=== PATIENT | female | born 1940 ===

== ENCOUNTER 2018-03-22 11:52 | Inpatient (IN) | payer MEDICAID, OTHER ==
--- NOTE | 2018-03-22 13:06 | ED PDOC ---
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 Limitations: language barrier Have you had recent travel within the past 21 days to any of the following countries: [place], [place], [place] or [place]?: No Onset/Duration Of Symptoms: Days (three) Current Symptoms Are (Timing): Still Present Location Of Pain: Throat Sick Contacts (Context): None Associated Symptoms: Fever, Sore Throat, Cough Severity: Moderate Additional Complaint(s): Pt presents to the ED complaining of shortness of breath, SCHMITT and general ill feeling for the last several days; the patient, on presentation is on93% Pulse Ox; pt has had a recent history of knee surgery Past Medical History Reviewed: Historical Data, Nursing Documentation, Vital Signs Vital Signs: Last Vital Signs Temp 97.8 F 03/27/18 12:25 Pulse 89 03/27/18 12:25 Resp 18 03/27/18 12:25 BP 135/70 03/27/18 12:25 Pulse Ox 95 03/28/18 21:20 - Medical History PMH: COPD, HTN, Hyperlipidemia - Family History Family History: States: Unknown Family Hx - Home Medications Home Medications: Ambulatory Orders Medication Instructions Recorded Albuterol/Ipratropium [Duoneb 3 3 ml IH Q4 PRN #100 neb 03/27/18 MG/3 Ml-0.5 MG/3 Ml 3 Ml] Azithromycin [Zithromax] 500 mg PO DAILY #5 tab 03/27/18 Docusate [Colace] 100 mg PO BID PRN #60 cap 03/27/18 Montelukast [Singulair] 10 mg PO DAILY #30 tab 03/27/18 Prednisone 5 mg PO DAILY #100 tab.ds.pk 03/27/18 - Allergies Allergies/Adverse Reactions: Allergies Allergy/AdvReac Type Severity Reaction Status Date / Time No Known Allergies Allergy Verified 03/22/18 12:09 Curb-65 Severity Score - CURB-65 Severity Score Confusion: No Bun >19mg/dl (>7mmol/L): Yes Respiratory Rate greater than/equal to 30: No Systolic BP <90 or Diastolic BP less than/equal 60mmHg: No Age >64: Yes Curb-65 Score: 2 Percentage 30-day mortality: 6.8% Review of Systems ROS Statement: Except As Marked, All Systems Reviewed And Found Negative Constitutional: Positive for: Fever, Chills Cardiovascular: Positive for: Chest Pain. Negative for: Palpitations, Edema, Light Headedness Respiratory: Positive for: Cough, Shortness of Breath, SOB with Exertion, Pleuritic Pain, Wheezing Gastrointestinal: Negative for: Nausea, Vomiting, Abdominal Pain Physical Exam - Reviewed Nursing Documentation Reviewed: Yes Vital Signs Reviewed: Yes - Physical Exam Appears: Positive for: Uncomfortable, In Acute Distress Head Exam: Positive for: ATRAUMATIC, NORMAL INSPECTION, NORMOCEPHALIC Skin: Positive for: Normal Color, Warm, Dry ENT: Positive for: Pharynx Is (clear and non-erythematous; there is no tonsillar exudate and the uvula is nonedematous and midline), Pharyngeal Erythema. Negative for: Tonsillar Exudate, Tonsillar Swelling Neck: Positive for: Normal, Painless ROM, Supple. Negative for: Decreased ROM Cardiovascular/Chest: Positive for: Regular Rate, Rhythm. Negative for: Edema, Gallop, Murmur, Bradycardia, Tachycardia Respiratory: Positive for: Decreased Breath Sounds, Stridor, Wheezing. Negative for: Crackles, Respiratory Distress, Plerual Rub Pulses-Carotid (L): 2+ Pulses-Carotid (R): 2+ Pulses-Radial (L): 2+ Pulses-Radial (R): 2+ - Laboratory Results Result Diagrams: 03/27/18 06:05 03/27/18 06:05 - ECG O2 Sat by Pulse Oximetry: 95 Disposition - Clinical Impression Clinical Impression: Heart failure - Patient ED Disposition Is Patient to be Admitted: Yes Doctor Will See Patient In The: Hospital Counseled Patient/Family Regarding: Diagnosis - Disposition Disposition Time: 14:10 Condition: IMPROVED - Pt Status Changed To: Hospital Disposition Of: Inpatient - Admit Certification Admit to Inpatient:: After my assessment, the patient will require hospitalization for at least two midnights. This is because of the severity of symptoms shown, intensity of services needed, and/or the medical risk in this patient being treated as an outpatient.
[2018-03-22] MEDS ORDERED: Piperacillin/Tazobact 4.5 GM in Sodium Chloride 0.9% 100 ML IVPB ONE (13:15)
[2018-03-22] MEDS ORDERED: Vancomycin 1 g Inj ONE (13:32)
[2018-03-22 13:35] LABS: VENOUS BLOOD GAS BASE EXCESS 3.3 mmol/L (0.0-2.0); VENOUS BLOOD GAS PCO2 48 mmHg (40-60); VENOUS BLOOD GAS PO2 21 mm/Hg (30-55); VENOUS BLOOD PH 7.39 (7.32-7.43)
--- NOTE | 2018-03-22 13:36 | RAD ---
HISTORY: Sepsis Patient COMPARISON: No prior. FINDINGS: LUNGS: Suboptimal portable study. Heterogeneous small opacities at the left lower lobe noted may represent atelectasis versus pneumonia. The right lung appears smaller than the left. PLEURA: No significant pleural effusion identified, no pneumothorax apparent. CARDIOVASCULAR: The cardiac silhouette is enlarged. There is also widening of the mediastinum noted. OSSEOUS STRUCTURES: No significant abnormalities. VISUALIZED UPPER ABDOMEN: Normal. OTHER FINDINGS: None. IMPRESSION: Suboptimal portable study. Small opacities at the left lower lobe may represent atelectasis or pneumonia. Widening of the mediastinum and mild cardiomegaly noted .
[2018-03-22 13:37] LABS: BASO % 0.3 % (0.0-2.0); EOS % 0.1 % (0.0-4.0); HEMOGLOBIN 14.5 g/dL (12.0-16.0); LYMPH # 1.1 K/uL (1.0-4.3); LYMPH % 12.5 % (20.0-40.0); MEAN CELL VOLUME 92.2 fl (81.0-99.0); MEAN CORPUSCULAR HGB CONC 34.7 g/dL (33.0-37.0); MEAN PLATELET VOLUME 9.1 fl (7.2-11.7); MONO # 0.8 K/uL (0.0-0.8); MONO % 9.2 % (0.0-10.0); NEUT % 77.9 % (50.0-75.0); NRBC % 0.1 % (0.0-0.0); RBC 4.51 Mil/uL (3.80-5.20); RED CELL DISTRIBUTION WIDTH 13.6 % (11.5-14.5)
[2018-03-22] MEDS ORDERED: Sodium Chloride 0.9% 1,000 ML IV SCH (13:45)
[2018-03-22 13:55] LABS: INR 1.2 (0.9-1.2); PARTIAL THROMBOPLASTIN TIME 29.6 Seconds (25.6-37.1); PROTHROMBIN TIME 13.6 Seconds (9.8-13.1)
[2018-03-22 13:57] LABS: ALBUMIN 3.7 g/dL (3.5-5.0); CALCIUM 10.5 mg/dL (8.4-10.2)
[2018-03-22 13:58] LABS: TROPONIN I 0.071 ng/mL (0.00-0.120)
[2018-03-22 14:39] LABS: SQUAMOUS EPITHIAL 4 /hpf (0-5); URINE BACTERIA RARE (<OCC); URINE BILIRUBIN NEGATIVE (NEGATIVE); URINE BLOOD NEGATIVE (NEGATIVE); URINE CLARITY CLOUDY (Clear); URINE COLOR YELLOW (YELLOW); URINE GLUCOSE (UA) NEG (Normal); URINE LEUKOCYTE ESTERASE NEG Leu/uL (Negative); URINE PROTEIN NEGATIVE (NEGATIVE)
[2018-03-22 14:47] LABS: VENOUS BLOOD GAS BASE EXCESS 3.6 mmol/L (0.0-2.0); VENOUS BLOOD GAS PCO2 52 mmHg (40-60); VENOUS BLOOD GAS PO2 14 mm/Hg (30-55); VENOUS BLOOD PH 7.37 (7.32-7.43)
[2018-03-22] MEDS ORDERED: Sodium Chloride 3% for Inhalation 4 ML VIAL.NEB IH PRN (15:54)
--- NOTE | 2018-03-22 16:28 | CP.PCM.HP ---
History of Present Illness - History of Present Illness History of Present Illness: 78 yo female with history of HTN and CAD just arrived a month ago as a visitor from [place] brought in the ER because of coughing productive with yellow sputum associated with fever since 3 days ago. Also complained of left sided chest pain when coughing or taking a deep breath and some SOB. Denied nausea or vomiting. Chest pain was non-radiating and pleuritic in character. There was no complaint of numbness of the limbs or dizziness. Present on Admission - Present on Admission Any Indicators Present on Admission: No History of DVT/PE: No History of Uncontrolled Diabetes: No Urinary Catheter: No Decubitus Ulcer Present: No Review of Systems - Review of Systems All systems: reviewed and no additional remarkable complaints except (aside from those mentioned above, 12 point system review were negative by me) Past Patient History - Infectious Disease Hx of Infectious Diseases: None - Tetanus Immunizations Tetanus Immunization: Unknown - Past Medical History & Family History Past Medical History?: Yes - Past Social History Smoking Status: Never Smoked Chewing Tobacco Use: No Cigar Use: No Alcohol: None Drugs: Denies Home Situation {Lives}: Other (visitor from [place]) - CARDIAC Hx Cardiac Disorders: Yes Hx Hypertension: Yes - PULMONARY Hx Respiratory Disorders: No - NEUROLOGICAL Hx Neurological Disorder: No - HEENT Hx HEENT Problems: No - RENAL Hx Chronic Kidney Disease: No - ENDOCRINE/METABOLIC Hx Endocrine Disorders: No - HEMATOLOGICAL/ONCOLOGICAL Hx Blood Disorders: No - INTEGUMENTARY Hx Dermatological Problems: No - MUSCULOSKELETAL/RHEUMATOLOGICAL Hx Musculoskeletal Disorders: No - GASTROINTESTINAL Hx Gastrointestinal Disorders: No - GENITOURINARY/GYNECOLOGICAL Hx Genitourinary Disorders: No - PSYCHIATRIC Hx Psychophysiologic Disorder: No Hx Substance Use: No - SURGICAL HISTORY Hx Tubal Ligation: Yes - ANESTHESIA Hx Anesthesia: Yes Hx Anesthesia Reactions: No Meds Allergies/Adverse Reactions: Allergies Allergy/AdvReac Type Severity Reaction Status Date / Time No Known Allergies Allergy Verified 03/22/18 12:09 Physical Exam - Constitutional Appears: No Acute Distress - Head Exam Head Exam: ATRAUMATIC - Eye Exam Eye Exam: PERRL. absent: Scleral icterus - ENT Exam ENT Exam: Mucous Membranes Moist - Neck Exam Neck exam: Negative for: Meningismus - Respiratory Exam Respiratory Exam: Wheezes. absent: Accessory Muscle Use, Respiratory Distress - Cardiovascular Exam Cardiovascular Exam: REGULAR RHYTHM, +S1, +S2 - GI/Abdominal Exam GI & Abdominal Exam: Soft. absent: Tenderness - Rectal Exam Rectal Exam: Deferred - Extremities Exam Extremities exam: Positive for: pedal pulses present. Negative for: calf tenderness, pedal edema - Back Exam Back exam: absent: tenderness - Neurological Exam Neurological exam: Alert, Oriented x3 - Psychiatric Exam Psychiatric exam: Normal Affect - Skin Skin Exam: Dry, Intact Results - Vital Signs Recent Vital Signs: Last Vital Signs Temp 99.1 F 03/22/18 15:22 Pulse 98 H 03/22/18 16:13 Resp 22 03/22/18 16:13 BP 120/58 L 03/22/18 16:13 Pulse Ox 99 03/22/18 16:13 - Labs Result Diagrams: 03/22/18 13:29 03/22/18 13:29 Labs: Laboratory Results - last 24 hr 03/22/18 03/22/18 03/22/18 13:29 13:29 13:29 WBC 9.0 RBC 4.51 Hgb 14.5 Hct 41.6 MCV 92.2 MCH 32.0 H MCHC 34.7 RDW 13.6 Plt Count 190 MPV 9.1 Neut % (Auto) 77.9 H Lymph % (Auto) 12.5 L [place] % (Auto) 9.2 Eos % (Auto) 0.1 Baso % (Auto) 0.3 Neut # (Auto) 7.0 Lymph # (Auto) 1.1 [place] # (Auto) 0.8 Eos # (Auto) 0.0 Baso # (Auto) 0.0 ESR 39 H PT 13.6 H INR 1.2 APTT 29.6 pO2 VBG pH VBG pCO2 VBG HCO3 VBG Total CO2 VBG O2 Sat (Calc) VBG Base Excess VBG Potassium Sodium 134 Chloride 97 L Glucose Lactate FiO2 Potassium 3.6 Carbon Dioxide 23 Anion Gap 18 BUN 31 H Creatinine 1.3 H Est GFR ( Amer) 48 Est GFR (Non-Af Amer) 39 Random Glucose 171 H Lactic Acid Calcium 10.5 H Phosphorus 2.2 L Magnesium 1.1 L Total Bilirubin 1.5 H AST 41 H ALT 31 Alkaline Phosphatase 62 Troponin I 0.0710 NT-Pro-B Natriuret Pep 6240 H Total Protein 7.4 Albumin 3.7 Globulin 3.7 Albumin/Globulin Ratio 1.0 Venous Blood Potassium Urine Color Urine Clarity Urine pH Ur Specific [place] Urine Protein Urine Glucose (UA) Urine Ketones Urine Blood Urine Nitrate Urine Bilirubin Urine Urobilinogen Ur Leukocyte Esterase Urine RBC (Auto) Urine Microscopic WBC Ur Squamous Epith Cells Urine Bacteria 03/22/18 03/22/18 03/22/18 13:29 13:29 14:20 WBC RBC Hgb Hct MCV MCH MCHC RDW Plt Count MPV Neut % (Auto) Lymph % (Auto) [place] % (Auto) Eos % (Auto) Baso % (Auto) Neut # (Auto) Lymph # (Auto) [place] # (Auto) Eos # (Auto) Baso # (Auto) ESR PT INR APTT pO2 21 L VBG pH 7.39 VBG pCO2 48 VBG HCO3 25.8 VBG Total CO2 30.6 H VBG O2 Sat (Calc) 44.6 VBG Base Excess 3.3 H VBG Potassium 3.6 Sodium 133.0 Chloride 98.0 Glucose 124 H Lactate 1.7 FiO2 21.0 Potassium Carbon Dioxide Anion Gap BUN Creatinine Est GFR ( Amer) Est GFR (Non-Af Amer) Random Glucose Lactic Acid 1.5 Calcium Phosphorus Magnesium Total Bilirubin AST ALT Alkaline Phosphatase Troponin I NT-Pro-B Natriuret Pep Total Protein Albumin Globulin Albumin/Globulin Ratio Venous Blood Potassium 3.6 Urine Color Yellow Urine Clarity Cloudy Urine pH 6.0 Ur Specific [place] 1.013 Urine Protein Negative Urine Glucose (UA) Neg Urine Ketones Negative Urine Blood Negative Urine Nitrate Negative Urine Bilirubin Negative Urine Urobilinogen 2.0 H Ur Leukocyte Esterase Neg Urine RBC (Auto) < 1 Urine Microscopic WBC 1 Ur Squamous Epith Cells 4 Urine Bacteria Rare 03/22/18 14:42 WBC RBC Hgb Hct MCV MCH MCHC RDW Plt Count MPV Neut % (Auto) Lymph % (Auto) [place] % (Auto) Eos % (Auto) Baso % (Auto) Neut # (Auto) Lymph # (Auto) [place] # (Auto) Eos # (Auto) Baso # (Auto) ESR PT INR APTT pO2 14 L VBG pH 7.37 VBG pCO2 52 VBG HCO3 25.5 VBG Total CO2 31.7 H VBG O2 Sat (Calc) 25.4 L VBG Base Excess 3.6 H VBG Potassium 3.9 Sodium 134.0 Chloride 99.0 Glucose 102 Lactate 1.3 FiO2 21.0 Potassium Carbon Dioxide Anion Gap BUN Creatinine Est GFR ( Amer) Est GFR (Non-Af Amer) Random Glucose Lactic Acid Calcium Phosphorus Magnesium Total Bilirubin AST ALT Alkaline Phosphatase Troponin I NT-Pro-B Natriuret Pep Total Protein Albumin Globulin Albumin/Globulin Ratio Venous Blood Potassium 3.9 Urine Color Urine Clarity Urine pH Ur Specific [place] Urine Protein Urine Glucose (UA) Urine Ketones Urine Blood Urine Nitrate Urine Bilirubin Urine Urobilinogen Ur Leukocyte Esterase Urine RBC (Auto) Urine Microscopic WBC Ur Squamous Epith Cells Urine Bacteria Assessment & Plan - Assessment and Plan (Free Text) Assessment: 78 yo female with history of HTN and CAD just arrived a month ago as a visitor from [place] brought in the ER because of coughing productive with yellow sputum associated with fever since 3 days ago. Also complained of left sided chest pain when coughing or taking a deep breath and some SOB. Denied nausea or vomiting. Chest pain was non-radiating and pleuritic in character. There was no complaint of numbness of the limbs or dizziness. 1. LLL Pneumonia CXray: showed LLL opacity with widened mediastinum and cardiomegaly CT scan of chest blood and sputum culture Rocephin 1gm IVPB daily Zithromax 500mg IVPB daily 2. CHF Isosorbide, Diovan and HCTZ taken this morning Serial Troponin 3. HTN BP stable after loaded with fluids patient took morning dose of Diovan/HCTZ and Isosorbide 4. DVT prophylaxis Heparin 5000 SC q 12hrs
[2018-03-22] MEDS ORDERED: Albuterol-Ipratrop 3 mg / 0.5 (3 ml) UD INH PRN (16:34)
[2018-03-22] MEDS: Sodium Chloride 0.9% 1,000 ML IV SCH ×5 (16:56→18:38)
[2018-03-22] MEDS ORDERED: Pantoprazole 40 mg EC Tab PO ONE (17:00)
[2018-03-22] MEDS: Pantoprazole 40 mg EC Tab PO SCH (17:01)
[2018-03-22] MEDS ORDERED: cefTRIAXone (Rocephin) 1 gm Inj ONE (17:01)
--- NOTE | 2018-03-22 17:02 | CT ---
PROCEDURE: CT Chest and abdomen with intravenous and oral contrast HISTORY: r/o dissection COMPARISON: None. TECHNIQUE: IV dose administered: 0. Axial and reformatted coronal and sagittal CT images of the chest and abdomen were obtained without IV contrast administration Radiation dose: Total exam DLP = 945.18 mGy-cm. This CT exam was performed using one or more of the following dose reduction techniques: Automated exposure control, adjustment of the mA and/or kV according to patient size, and/or use of iterative reconstruction technique. FINDINGS: CT CHEST: LUNGS: Mild pulmonary vascular congestion is noted. There are reticular opacities seen in the lungs more prominent in the mid and lower portion may represent atelectasis or scar tissue. No evidence of suspicious mass. MEDIASTINUM: The thoracic aorta is ectatic and tortuous. The main pulmonary artery is mildly enlarged. No evidence of calcified intimal displacement to suggest aortic dissection in this noncontrast study. .The heart is mildly to moderately enlarged. LYMPH NODES: Unremarkable. PLEURA: Unremarkable. No pneumothorax. No pleural fluid. BONES: Unremarkable. OTHER FINDINGS:: None. CT ABDOMEN: LIVER: No evidence of acute pathology. No gross lesion or ductal dilatation. GALLBLADDER AND BILE DUCTS: Unremarkable. PANCREAS: Unremarkable. No gross lesion or ductal dilatation. SPLEEN: Unremarkable. ADRENALS: There is 3.4 x 2.6 centimeter low-attenuation mass at the left adrenal gland may represent benign adenoma. KIDNEYS AND URETERS: Unremarkable. No hydronephrosis. No solid mass. VASCULATURE: Unremarkable. No aortic aneurysm. STOMACH AND BOWEL: Unremarkable, as visualized. The entire bowel was not visualized, as the pelvis was not included in this study. PERITONEUM: Unremarkable. No free fluid. No free air. LYMPH NODES: Unremarkable. No enlarged lymph nodes. BONES: No acute fracture. OTHER FINDINGS: None. IMPRESSION: Cannot evaluate for aortic dissection without IV contrast administration. The thoracic aorta is ectatic and tortuous. The abdominal aorta is normal in caliber and shape. Mild pulmonary vascular congestion and [id number] cardiomegaly. No evidence of acute pathology in the abdomen. 3.4 x 2.6 centimeter low-attenuation mass at the left adrenal gland may represent benign adenoma.
[2018-03-22] MEDS ORDERED: Azithromycin 500 MG IV IVPB ONE (18:18)
[2018-03-22] MEDS: Azithromycin 500 MG in Sodium Chloride 0.9% 250 ML IVPB SCH (18:18)
[2018-03-22] MEDS ORDERED: Albuterol-Ipratrop 3 mg / 0.5 (3 ml) UD ONE (20:06)
[2018-03-23] MEDS: Sodium Chloride 0.9% 1,000 ML IV SCH (04:20)
[2018-03-23 05:20] LABS: BASO % 0.6 % (0.0-2.0); EOS % 0.6 % (0.0-4.0); LYMPH # 1.9 K/uL (1.0-4.3); LYMPH % 27.1 % (20.0-40.0); MEAN CORPUSCULAR HEMOGLOBIN 32.1 pg (27.0-31.0); MEAN CORPUSCULAR HGB CONC 33.9 g/dL (33.0-37.0); MEAN PLATELET VOLUME 8.8 fl (7.2-11.7); MONO # 0.8 K/uL (0.0-0.8); MONO % 11.5 % (0.0-10.0); NEUT # 4.3 K/uL (1.8-7.0); NEUT % 60.2 % (50.0-75.0); RBC 3.9 Mil/uL (3.80-5.20); RED CELL DISTRIBUTION WIDTH 13.7 % (11.5-14.5); WHITE BLOOD COUNT 7.2 K/uL (4.8-10.8)
[2018-03-23 05:39] LABS: LDL CHOLESTEROL 44 mg/dL (0-129)
[2018-03-23 05:43] LABS: HEMOGLOBIN 12.5 g/dL (12.0-16.0); MEAN CELL VOLUME 94.5 fl (81.0-99.0)
[2018-03-23 06:00] LABS: ALB/GLOB RATIO 0.8 (1.0-2.1); ALBUMIN 2.9 g/dL (3.5-5.0); ALT/SGPT 26 U/L (9-52); AST/SGOT 37 U/L (14-36); BLOOD UREA NITROGEN 22 mg/dl (7-17); CALCIUM 9.5 mg/dL (8.4-10.2); GFR AFRICAN-AMERICAN > 60; GFR NON-AFRICAN AMERICAN 53; HDL CHOLESTEROL 38 MG/DL (30-70)
[2018-03-23] MEDS ORDERED: Iohexol 240 (50 ml) PO STA (07:57)
--- NOTE | 2018-03-23 07:59 | CP.PCM.PN ---
Subjective - Date & Time of Evaluation Date of Evaluation: 03/23/18 Time of Evaluation: 07:59 - Subjective Subjective: PT WHEEZING THROUGHOUT, AUDIBLE AT REST PT FATIGUES EASILY WITH SPEECH, FEW WORDS AT A TIME ACCESSORY MUSCLE USE SATURATING 95% ON 3L MONITOR CLOSELY Objective - Vital Signs/Intake and Output Vital Signs (last 24 hours): Temp Pulse Resp BP Pulse Ox 98.3 F 90 18 108/69 97 03/23/18 05:02 03/23/18 05:02 03/23/18 05:02 03/23/18 05:02 03/23/18 05:02 Vitals Reviewed GEN: WDWN, alert, cooperative HEENT: NCAT, PERRL, EOMI HEART: RRR, +S1S2, NO MRG LUNG: +WHEEZING THROUGHOUT, AUDIBLE WITHOUT AUSCULTATION, ACCESSORY MUSCLE USE , FATIGUE WITH SPEECH ABD: soft, NT, ND, No HSM, No masses EXT: normal pedal pulses, normal capillary refill NEURO: awake, alert, no focal deficits SKIN: warm, dry PSYCH: normal mood, normal affect Intake and Output: 03/23/18 03/23/18 06:59 18:59 Intake Total 1250 Balance 1250 - Medications Medications: Current Medications Albuterol/Ipratropium (Duoneb 3 Mg/0.5 Mg (3 Ml) Ud) 3 ml INH RQ4 PRN PRN Reason: Wheezing Last Admin: 03/22/18 20:11 Dose: 3 ml Docusate Sodium (Colace) 100 mg PO BID PRN PRN Reason: Constipation Ceftriaxone Sodium 1 gm/ (Sodium Chloride) 100 mls @ 100 mls/hr IVPB DAILY ALHAJI PRN Reason: Protocol Last Admin: 03/22/18 17:01 Dose: 100 mls/hr Azithromycin 500 mg/ Sodium (Chloride) 250 mls @ 250 mls/hr IVPB DAILY ALHAJI PRN Reason: Protocol Last Admin: 03/22/18 18:18 Dose: 250 mls/hr Sodium Chloride (Sodium Chloride 0.9%) 1,000 mls @ 100 mls/hr IV .Q10H ALHAJI Stop: 03/23/18 15:33 Last Admin: 03/23/18 04:20 Dose: 100 mls/hr Iohexol (Omnipaque 240 (50 Ml)) 50 ml PO ONCE STA Stop: 03/23/18 07:58 Pantoprazole Sodium (Protonix Ec Tab) 40 mg PO DAILY ALHAJI Last Admin: 03/22/18 17:01 Dose: 40 mg Pneumococcal Polyvalent Vaccine (Pneumovax 23 Vaccine) 0.5 ml IM .ONCE ONE Stop: 03/23/18 09:01 - Labs Labs: 03/23/18 04:20 03/23/18 04:20 PT 13.6 Seconds (9.8-13.1) H 03/22/18 13:29 INR 1.2 (0.9-1.2) 03/22/18 13:29 APTT 29.6 Seconds (25.6-37.1) 03/22/18 13:29 Assessment and Plan - Assessment and Plan (Free Text) Plan: 78 yo female with history of HTN and CAD just arrived a month ago as a visitor from [place] brought in the ER because of coughing productive with yellow sputum associated with fever since 3 days ago. Also complained of left sided chest pain when coughing or taking a deep breath and some SOB. Denied nausea or vomiting. Chest pain was non-radiating and pleuritic in character. There was no complaint of numbness of the limbs or dizziness. 1. LLL Pneumonia CXray: showed LLL opacity with widened mediastinum and cardiomegaly CT scan of chest dry, prelim neg for dissection renal function improved, dimer elevated, pt for CTA chest and abd for diagnostic eval for dissection/PE blood and sputum culture pending procalcitonin pending continue aggressive duoneb tx, pt improved after several tx Rocephin 1gm IVPB daily Zithromax 500mg IVPB daily 2. CHF Isosorbide, Diovan and HCTZ taken this morning Serial Troponin neg x3 3. HTN BP stable after loaded with fluids patient took morning dose of Diovan/HCTZ and Isosorbide 4. DVT prophylaxis Heparin 5000 SC q 12hrs
[2018-03-23] MEDS ORDERED: Pneumococcal 23-Valent Vaccine IM ONE (09:00)
[2018-03-23] MEDS: Azithromycin 500 MG in Sodium Chloride 0.9% 250 ML IVPB SCH (09:29)
[2018-03-23] MEDS: Pantoprazole 40 mg EC Tab PO SCH (09:30)
[2018-03-23] MEDS ORDERED: Perflutren Lipid Microsphere 1.5 ML SUS IV ONE (11:30)
[2018-03-23] MEDS: Artificial Tears Opht Soln OU PRN (12:10)
[2018-03-23] MEDS: Iohexol 240 (50 ml) PO STA ×2 (13:10→13:26)
[2018-03-23] MEDS: Albuterol-Ipratrop 3 mg / 0.5 (3 ml) UD INH SCH ×4 (13:17→23:20)
--- NOTE | 2018-03-23 14:20 | CARD ---
APPROVED REPORT EKG Measurement Heart [id number] <Conclusion> Sinus tachycardia with 1st degree AV block Left axis deviation Left bundle branch block Abnormal ECG
[2018-03-23] MEDS ORDERED: Sodium Chloride 0.9% 50 ML IV ONE (14:31)
[2018-03-23] MEDS ORDERED: Iodixanol 320 MG/ML 100 ML BOTTLE IV ONE (14:31)
--- NOTE | 2018-03-23 19:10 | CARD ---
APPROVED REPORT EXAM: Two-dimensional and M-mode echocardiogram with Doppler, color Doppler with contrast. Other Information Quality : GoodRhythm : NSR INDICATION Cardiomyopathy Elevated BNP Echo Enhancing Agent Indication: Rule out thrombus Agent/Amount Used: Definity 2D DIMENSIONS IVSd1.39 (0.7-1.1cm)LVDd4.42 (3.9-5.9cm) LVOT Diameter2.44 (1.8-2.4cm)PWd1.10 (0.7-1.1cm) IVSs0.89 (0.8-1.2cm)LVDs5.17 (2.5-4.0cm) FS (%) 17.0 %PWs1.10 (0.8-1.2cm) M-Mode DIMENSIONS Left Atrium (MM)4.26 (2.5-4.0cm)Aortic Root3.63 (2.2-3.7cm) Mitral Valve E/A ratio0.0 TDI E/Lateral E'0.0E/Medial E'0.0 Tricuspid Valve TR Peak [id number] [id number] Peak Gr.23mmHg [id number] LEFT VENTRICLE The left ventricle is normal size. There is normal left ventricular wall thickness. Left ventricle is severely impaired. The Ejection Fraction is 20-25%. Apical and vj-septal hypokinesis Transmitral Doppler flow pattern is Grade I-abnormal relaxation pattern. A thrombus in left Ventricle. RIGHT VENTRICLE The right ventricle is normal size. There is normal right ventricular wall thickness. The right ventricular systolic function is normal. ATRIA The left atrium size is normal. The right atrium size is normal. AORTIC VALVE The aortic valve is not well visualized. There is mild aortic regurgitation. There is no aortic valvular stenosis. MITRAL VALVE The mitral valve is not well visualized. There is no mitral valve stenosis. Mitral regurgitation is trace. TRICUSPID VALVE The tricuspid valve is normal in structure. There is mild pulmonary hypertension. PULMONIC VALVE The pulmonary valve is normal in structure. There is no pulmonic valvular regurgitation. GREAT VESSELS The aortic root is normal in size. The IVC is normal in size and collapses >50% with inspiration. PERICARDIAL EFFUSION The pericardium appears normal. <Conclusion> The left ventricle is normal size. There is normal left ventricular wall thickness. Left ventricle is severely impaired. The Ejection Fraction is 20-25%. Apical and vj-septal hypokinesis Transmitral Doppler flow pattern is Grade I-abnormal relaxation pattern. A thrombus in left Ventricle. There is mild aortic regurgitation. There is mild pulmonary hypertension.
[2018-03-23] MEDS: Albuterol-Ipratrop 3 mg / 0.5 (3 ml) UD INH PRN (23:34)
[2018-03-24] MEDS ORDERED: Levalbuterol 1.25 MG/3 ML Inhal Soln UD INH STA (02:09)
--- NOTE | 2018-03-24 02:13 | CP.PCM.PN ---
Subjective - Date & Time of Evaluation Date of Evaluation: 03/24/18 Time of Evaluation: 02:13 - Subjective Subjective: Called to evaluate this patient with wheezes Exam: General: BP 100/63mmHg; HR 114/min; RR 22/min; T 98F; SpO2 98% on 3L Oxygen Patient awake and alert, with audible wheezes Resp: Expiratory wheezes in both lung swain, No rales CVS: S1 S2 Regular; No S3 S4 Abdomen: Full, Soft, +ve bowel sounds EXtremities: Pain to the right knee Neuro: Non focal I&P #. Bronchospasm - Xopenex nebulizer - Methylprednisolone 125mg IVP and 40mg Q6h Gordo Che MD Objective - Vital Signs/Intake and Output Vital Signs (last 24 hours): Temp Pulse Resp BP Pulse Ox 98.4 F 114 H 20 100/63 98 03/24/18 01:59 03/24/18 01:59 03/24/18 01:59 03/24/18 01:59 03/24/18 01:59 - Medications Medications: Current Medications Acetaminophen (Tylenol 325mg Tab) 650 mg PO Q6 PRN PRN Reason: mild pain 1-3, mod pain 4-7 Last Admin: 03/23/18 12:10 Dose: 650 mg Albuterol/Ipratropium (Duoneb 3 Mg/0.5 Mg (3 Ml) Ud) 3 ml INH RQ4 ALHAJI Last Admin: 03/23/18 23:20 Dose: 3 ml Albuterol/Ipratropium (Duoneb 3 Mg/0.5 Mg (3 Ml) Ud) 3 ml INH RQ2 PRN PRN Reason: Wheezing Last Admin: 03/23/18 23:34 Dose: 3 ml Artificial Tears (Artificial Tears) 2 drop OU Q4 PRN PRN Reason: Dry eyes Last Admin: 03/23/18 12:10 Dose: 2 drop Docusate Sodium (Colace) 100 mg PO BID PRN PRN Reason: Constipation Ceftriaxone Sodium 1 gm/ (Sodium Chloride) 100 mls @ 100 mls/hr IVPB DAILY ALHAJI PRN Reason: Protocol Last Admin: 03/23/18 09:28 Dose: 100 mls/hr Azithromycin 500 mg/ Sodium (Chloride) 250 mls @ 250 mls/hr IVPB DAILY ALHAJI PRN Reason: Protocol Last Admin: 03/23/18 09:29 Dose: 250 mls/hr Levalbuterol HCl (Xopenex) 1.25 mg INH STAT STA Stop: 03/24/18 02:10 Methylprednisolone (Solu-Medrol) 125 mg IVP ONCE ONE Stop: 03/24/18 02:11 Pantoprazole Sodium (Protonix Ec Tab) 40 mg PO DAILY ALHAJI Last Admin: 03/23/18 09:30 Dose: 40 mg - Labs Labs: 03/23/18 04:20 03/23/18 04:20 PT 13.6 Seconds (9.8-13.1) H 03/22/18 13:29 INR 1.2 (0.9-1.2) 03/22/18 13:29 APTT 29.6 Seconds (25.6-37.1) 03/22/18 13:29
[2018-03-24] MEDS: Albuterol-Ipratrop 3 mg / 0.5 (3 ml) UD INH SCH ×5 (05:02→15:32)
[2018-03-24 05:41] LABS: HEMOGLOBIN 13.2 g/dL (12.0-16.0); MEAN CELL VOLUME 95.1 fl (81.0-99.0); MEAN CORPUSCULAR HEMOGLOBIN 31.5 pg (27.0-31.0); MEAN CORPUSCULAR HGB CONC 33.1 g/dL (33.0-37.0); RBC 4.21 Mil/uL (3.80-5.20); RED CELL DISTRIBUTION WIDTH 14.1 % (11.5-14.5)
[2018-03-24] MEDS: Azithromycin 500 MG in Sodium Chloride 0.9% 250 ML IVPB SCH (09:15)
[2018-03-24] MEDS: Pantoprazole 40 mg EC Tab PO SCH (09:18)
[2018-03-24] MEDS: Albuterol-Ipratrop 3 mg / 0.5 (3 ml) UD INH PRN ×2 (09:51→17:51)
[2018-03-24] MEDS ORDERED: MethylPREDNISolone 40 mg Vial IVP SCH ×2 (10:00→21:00)
[2018-03-24] MEDS ORDERED: methylPREDNISolone 40 MG in Sodium Chloride 0.9% 50 ML IVPB SCH (10:00)
--- NOTE | 2018-03-24 10:23 | CARD ---
APPROVED REPORT EKG Measurement Heart [id number] <Conclusion> Sinus tachycardia with 1st degree AV block with occasional premature ventricular complexes Left bundle branch block Abnormal ECG
--- NOTE | 2018-03-24 10:42 | CP.PCM.CON ---
History of Present Illness - History of Present Illness History of Present Illness: 78 yo female with history of HTN and CAD just arrived a month ago as a visitor from [place] brought in the ER because of coughing productive with yellow sputum associated with fever since 3 days ago. Pleuritic type chest pain worse with coughing and deep inspiration Echo: EF 20-25% segmental hypokinesia Mild MR/AR Upon review there is no thrombus in the LV EKG: CLBBB Troponin: neg Past Patient History - Infectious Disease Hx of Infectious Diseases: None - Tetanus Immunizations Tetanus Immunization: Unknown - Past Medical History & Family History Past Medical History?: Yes - Past Social History Smoking Status: Never Smoked - CARDIAC Hx Cardiac Disorders: Yes Hx Hypertension: Yes - PULMONARY Hx Respiratory Disorders: No - NEUROLOGICAL Hx Neurological Disorder: No - HEENT Hx HEENT Problems: No - RENAL Hx Chronic Kidney Disease: No - ENDOCRINE/METABOLIC Hx Endocrine Disorders: No - HEMATOLOGICAL/ONCOLOGICAL Hx Blood Disorders: No - INTEGUMENTARY Hx Dermatological Problems: No - MUSCULOSKELETAL/RHEUMATOLOGICAL Hx Musculoskeletal Disorders: No Hx Falls: No - GASTROINTESTINAL Hx Gastrointestinal Disorders: No - GENITOURINARY/GYNECOLOGICAL Hx Genitourinary Disorders: No - PSYCHIATRIC Hx Psychophysiologic Disorder: No Hx Substance Use: No - SURGICAL HISTORY Hx Surgeries: Yes Hx Tubal Ligation: Yes - ANESTHESIA Hx Anesthesia: Yes Hx Anesthesia Reactions: No Hx Malignant Hyperthermia: No Meds Allergies/Adverse Reactions: Allergies Allergy/AdvReac Type Severity Reaction Status Date / Time No Known Allergies Allergy Verified 03/22/18 12:09 - Medications Medications: Current Medications Acetaminophen (Tylenol 325mg Tab) 650 mg PO Q6 PRN PRN Reason: mild pain 1-3, mod pain 4-7 Last Admin: 03/23/18 12:10 Dose: 650 mg Albuterol/Ipratropium (Duoneb 3 Mg/0.5 Mg (3 Ml) Ud) 3 ml INH RQ4 [facility] Last Admin: 03/24/18 07:21 Dose: Not Given Albuterol/Ipratropium (Duoneb 3 Mg/0.5 Mg (3 Ml) Ud) 3 ml INH RQ2 PRN PRN Reason: Wheezing Last Admin: 03/24/18 09:51 Dose: 3 ml Artificial Tears (Artificial Tears) 2 drop OU Q4 PRN PRN Reason: Dry eyes Last Admin: 06/04/18 12:10 Dose: 2 drop Docusate Sodium (Colace) 100 mg PO BID PRN PRN Reason: Constipation Ceftriaxone Sodium 1 gm/ (Sodium Chloride) 100 mls @ 100 mls/hr IVPB DAILY [facility] PRN Reason: Protocol Last Admin: 03/24/18 09:16 Dose: 100 mls/hr Azithromycin 500 mg/ Sodium (Chloride) 250 mls @ 250 mls/hr IVPB DAILY [facility] PRN Reason: Protocol Last Admin: 03/24/18 09:15 Dose: 250 mls/hr Methylprednisolone (Solu-Medrol) 40 mg IVP Q6 [facility] Last Admin: 03/24/18 09:18 Dose: 40 mg Pantoprazole Sodium (Protonix Ec Tab) 40 mg PO DAILY [facility] Last Admin: 03/24/18 09:18 Dose: 40 mg Physical Exam - Constitutional Appears: Well - Head Exam Head Exam: ATRAUMATIC - Eye Exam Eye Exam: Normal appearance - ENT Exam ENT Exam: Normal Exam - Neck Exam Neck exam: Positive for: Normal Inspection - Respiratory Exam Respiratory Exam: Rhonchi, Wheezes - Cardiovascular Exam Cardiovascular Exam: REGULAR RHYTHM Results - Vital Signs Recent Vital Signs: Last Vital Signs Temp 98.3 F 03/24/18 07:57 Pulse 112 H 03/24/18 07:57 Resp 18 03/24/18 07:57 BP 104/65 03/24/18 09:17 Pulse Ox 96 03/24/18 07:57 - Labs Result Diagrams: 03/27/18 06:05 03/27/18 06:05 Labs: Laboratory Results - last 24 hr 03/23/18 03/23/18 03/24/18 04:20 11:00 04:20 WBC 7.0 RBC 4.21 Hgb 13.2 Hct 40.0 MCV 95.1 MCH 31.5 H MCHC 33.1 RDW 14.1 Plt Count 167 Sodium Potassium Chloride Carbon Dioxide Anion Gap BUN Creatinine Est GFR ( Amer) Est GFR (Non-Af Amer) Random Glucose Hemoglobin A1c 6.1 Calcium Procalcitonin 0.06 L 03/24/18 04:20 WBC RBC Hgb Hct MCV MCH MCHC RDW Plt Count Sodium 139 Potassium 3.9 Chloride 104 Carbon Dioxide 25 Anion Gap 14 BUN 21 H Creatinine 1.1 Est GFR ( Amer) 58 Est GFR (Non-Af Amer) 48 Random Glucose 144 H Hemoglobin A1c Calcium 10.0 Procalcitonin Assessment & Plan (1) LV dysfunction Status: Acute (2) LV (left ventricular) mural thrombus Assessment and Plan: Upon review there is no thrombus in the LV Status: Suspected (3) LLL pneumonia Status: Acute
--- NOTE | 2018-03-24 12:05 | CT ---
PROCEDURE: CT Chest, Abdomen and Pelvis with intravenous contrast HISTORY: DYSPNEA, HYPOX COMPARISON: 03/22/2018 CT thorax abdomen pelvis TECHNIQUE: IV dose administered: 95 cc Omnipaque 350 Radiation dose: Total exam DLP = 3021.44 mGy-cm. This CT exam was performed using one or more of the following dose reduction techniques: Automated exposure control, adjustment of the mA and/or kV according to patient size, and/or use of iterative reconstruction technique. FINDINGS: CT CHEST WITH CONTRAST: LUNGS: Bibasilar atelectasis. Otherwise unremarkable without evidence of pulmonary nodules, masses or infiltrates. MEDIASTINUM: Unremarkable. Normal caliber aorta and pulmonary arterial trunk. No aortic dissection. Normal size heart. LYMPH NODES: Unremarkable. PLEURA: Unremarkable. No pneumothorax. No pleural fluid. BONES: Multilevel degenerative change primarily non marginal osteophyte formation. OTHER FINDINGS: None. CT ABDOMEN AND PELVIS: LIVER: Static steatosis. Seen area of contrast enhancement right hepatic lobe measuring 2.7 cm etiology, significance uncertain. This may represent a hypervascular mass. Alternatively the variations of hemangioma including flash hemangioma can assume this appearance. GALLBLADDER AND BILE DUCTS: Unremarkable. PANCREAS: Unremarkable. No gross lesion or ductal dilatation. SPLEEN: Unremarkable. ADRENALS: Unremarkable. No massAll stable left adrenal mass 3.2 x 3.4 cm well-circumscribed likely adenoma. All. KIDNEYS AND URETERS: Unremarkable. No hydronephrosis. No solid mass. VASCULATURE: Unremarkable. No aortic aneurysm. BOWEL: Diverticulosis without an acute inflammatory component or other associated pathologic process. APPENDIX: Normal appendix. PERITONEUM: Unremarkable. No free fluid. No free air. LYMPH NODES: Unremarkable. No enlarged lymph nodes. BLADDER: Unremarkable. REPRODUCTIVE: Unremarkable. BONES: No acute fracture. Multilevel degenerative changes including non marginal osteophyte formation, vacuum disc phenomenon, multilevel disc space narrowing. OTHER FINDINGS: None. IMPRESSION: No evidence of aortic aneurysm or dissection. Nondiagnostic assessment for pulmonary embolism beyond the lobar branches based on opacification of the arterial system. Additional benign and/or incidental findings described above. Concordant results (preliminary interpretation) provided by [employer]. Procedure Completed: 15:04 Preliminary ([facility]) Report: Dictated and Authenticated: 18:19 Final Interpretation: 11:57 March 24, 2018.
--- NOTE | 2018-03-24 15:08 | CARD ---
APPROVED REPORT EKG Measurement Heart [id number] <Conclusion> Wide QRS rhythm Left bundle branch block Abnormal ECG
--- NOTE | 2018-03-24 15:28 | CP.PCM.PN ---
Subjective - Date & Time of Evaluation Date of Evaluation: 03/24/18 Time of Evaluation: 11:00 - Subjective Subjective: Pt still has cough with slight yellow phlegm denies CP + SOB + wheezing has slight pedal edema no N/V no abd pain no fever Objective - Vital Signs/Intake and Output Vital Signs (last 24 hours): Temp Pulse Resp BP Pulse Ox 97.4 F L 111 H 18 93/58 L 96 03/24/18 12:00 03/24/18 12:00 03/24/18 12:00 03/24/18 12:00 03/24/18 12:00 - Medications Medications: Current Medications Acetaminophen (Tylenol 325mg Tab) 650 mg PO Q6 PRN PRN Reason: mild pain 1-3, mod pain 4-7 Last Admin: 03/24/18 13:54 Dose: 650 mg Albuterol/Ipratropium (Duoneb 3 Mg/0.5 Mg (3 Ml) Ud) 3 ml INH RQ4 [facility] Last Admin: 03/24/18 11:34 Dose: 3 ml Albuterol/Ipratropium (Duoneb 3 Mg/0.5 Mg (3 Ml) Ud) 3 ml INH RQ2 PRN PRN Reason: Wheezing Last Admin: 03/24/18 09:51 Dose: 3 ml Artificial Tears (Artificial Tears) 2 drop OU Q4 PRN PRN Reason: Dry eyes Last Admin: 03/23/18 12:10 Dose: 2 drop Docusate Sodium (Colace) 100 mg PO BID PRN PRN Reason: Constipation Enoxaparin Sodium (Lovenox) 90 mg SC Q12 [facility] PRN Reason: Protocol Ceftriaxone Sodium 1 gm/ (Sodium Chloride) 100 mls @ 100 mls/hr IVPB DAILY [facility] PRN Reason: Protocol Last Admin: 03/24/18 09:16 Dose: 100 mls/hr Azithromycin 500 mg/ Sodium (Chloride) 250 mls @ 250 mls/hr IVPB DAILY [facility] PRN Reason: Protocol Last Admin: 03/24/18 09:15 Dose: 250 mls/hr Methylprednisolone (Solu-Medrol) 40 mg IVP Q12 [facility] Pantoprazole Sodium (Protonix Ec Tab) 40 mg PO DAILY [facility] Last Admin: 03/24/18 09:18 Dose: 40 mg - Labs Labs: 03/24/18 04:20 03/24/18 04:20 PT 13.6 Seconds (9.8-13.1) H 03/22/18 13:29 INR 1.2 (0.9-1.2) 03/22/18 13:29 APTT 29.6 Seconds (25.6-37.1) 03/22/18 13:29 - Constitutional Appears: Non-toxic, No Acute Distress, Chronically Ill - Head Exam Head Exam: ATRAUMATIC, NORMAL INSPECTION, NORMOCEPHALIC - Eye Exam Eye Exam: EOMI, Normal appearance Pupil Exam: NORMAL ACCOMODATION - ENT Exam ENT Exam: Mucous Membranes Moist, Normal External Ear Exam - Neck Exam Neck Exam: Full ROM. absent: Meningismus - Respiratory Exam Respiratory Exam: Rales, Rhonchi, Wheezes - Cardiovascular Exam Cardiovascular Exam: Tachycardia, REGULAR RHYTHM, +S1, +S2 - GI/Abdominal Exam GI & Abdominal Exam: Soft, Normal Bowel Sounds. absent: Tenderness - Extremities Exam Extremities Exam: Full ROM, Normal Capillary Refill, Pedal Edema. absent: Calf Tenderness - Back Exam Back Exam: Full ROM. absent: CVA tenderness (L), CVA tenderness (R) - Neurological Exam Neurological Exam: Alert, Awake, CN II-XII Intact, Oriented x3 Neuro motor strength exam: Left Upper Extremity: 5, Right Upper Extremity: 5, Left Lower Extremity: 5, Right Lower Extremity: 5 - Psychiatric Exam Psychiatric exam: Normal Affect, Normal Mood - Skin Skin Exam: Dry, Normal Color, Warm Assessment and Plan (1) Acute exacerbation of CHF (congestive heart failure) Status: Acute (2) LV (left ventricular) mural thrombus Status: Suspected (3) Reactive airway disease with wheezing Status: Acute (4) CAD (coronary artery disease) Status: Chronic (5) Cardiomyopathy Status: Chronic - Assessment and Plan (Free Text) Assessment: 78 y/o female , who just came from [place] 1 month ago, with hx of CAD, came in because of fever, cough, wheezing and SOB. CT of Chest : no aneurysm/dissection, no PE, Pulm Vasc congestion ECHO : 20-25% EF, Apical and Anterolateral Hypokinesia, LV Thrombus (1) Acute exacerbation of CHF (congestive heart failure) systolic and diastolic dysfunction Status: Acute EF 20-25 % Lasix 20 mg IV proBNP elevated to 6000 CT of chest shows Pulm vascular congestion (2) LV (left ventricular) mural thrombus Status: Suspected Cardio consulted- discussed with Dr Ramos - rec starting anticoagulant Will start Lovenox then overlap Coumadin discussed with help of a paraprofessional interpreter ( Shavonne) Pt and daughter agreed to anticoagulation, denies hx of GI bleed 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 Acute Bronchitis r/o Early Pneumonia pt came in with fever, cough , productive started empirically on IV ceftriaxone and Azithro -will cont and monitor CXR : lower lobe opacities vs atelectasis, CT of chest : Atelectasis, PVC (5) CAD (coronary artery disease) Status: Chronic ECHO shows apical and anteroseptal hypokinesia Tropx 3 negative Cardio consulted cont ASA, Lovenox no BB, OVIDIO due to low normal BP LDL : low - no statin (6) Cardiomyopathy Status: Chronic ? ischemic - Lasix IV given - pt would benefit from OVIDIO and BB once BP better 7. Obesity BMI 36.8 8. Aortic aneurysm/Dissection ruled out CTA of Chest /Abdomen done - no aneurysm DVT proph Pt on therapeutic Lovenox
[2018-03-24] MEDS: Enoxaparin 100 mg Syringe SC SCH ×2 (16:38→21:29)
[2018-03-24] MEDS: Artificial Tears Opht Soln OU PRN (16:38)
[2018-03-24] MEDS: Levalbuterol 1.25 MG/3 ML Inhal Soln UD INH SCH ×3 (17:49→19:07)
--- NOTE | 2018-03-24 19:52 | CP.PCM.CON ---
History of Present Illness - History of Present Illness History of Present Illness: Called to see patient as a Pulmonary principal consultant. Chart reviewed. Will see patient tomorrow. Cont present medications. Monitor serial peak flows. Would add Montelukast 10mg po q HS. Obtain CBC with diff. Past Patient History - Infectious Disease Hx of Infectious Diseases: None - Tetanus Immunizations Tetanus Immunization: Unknown - Past Medical History & Family History Past Medical History?: Yes - Past Social History Smoking Status: Never Smoked - CARDIAC Hx Cardiac Disorders: Yes Hx Hypertension: Yes - PULMONARY Hx Respiratory Disorders: No - NEUROLOGICAL Hx Neurological Disorder: No - HEENT Hx HEENT Problems: No - RENAL Hx Chronic Kidney Disease: No - ENDOCRINE/METABOLIC Hx Endocrine Disorders: No - HEMATOLOGICAL/ONCOLOGICAL Hx Blood Disorders: No - INTEGUMENTARY Hx Dermatological Problems: No - MUSCULOSKELETAL/RHEUMATOLOGICAL Hx Musculoskeletal Disorders: No Hx Falls: No - GASTROINTESTINAL Hx Gastrointestinal Disorders: No - GENITOURINARY/GYNECOLOGICAL Hx Genitourinary Disorders: No - PSYCHIATRIC Hx Psychophysiologic Disorder: No Hx Substance Use: No - SURGICAL HISTORY Hx Surgeries: Yes Hx Tubal Ligation: Yes - ANESTHESIA Hx Anesthesia: Yes Hx Anesthesia Reactions: No Hx Malignant Hyperthermia: No Meds Allergies/Adverse Reactions: Allergies Allergy/AdvReac Type Severity Reaction Status Date / Time No Known Allergies Allergy Verified 03/22/18 12:09 - Medications Medications: Current Medications Acetaminophen (Tylenol 325mg Tab) 650 mg PO Q6 PRN PRN Reason: mild pain 1-3, mod pain 4-7 Last Admin: 03/24/18 13:54 Dose: 650 mg Albuterol/Ipratropium (Duoneb 3 Mg/0.5 Mg (3 Ml) Ud) 3 ml INH RQ2 PRN PRN Reason: Wheezing Last Admin: 03/24/18 17:51 Dose: 3 ml Artificial Tears (Artificial Tears) 2 drop OU Q4 PRN PRN Reason: Dry eyes Last Admin: 03/24/18 16:38 Dose: 2 drop Docusate Sodium (Colace) 100 mg PO BID PRN PRN Reason: Constipation Enoxaparin Sodium (Lovenox) 90 mg SC Q12 [facility] PRN Reason: Protocol Last Admin: 03/24/18 16:38 Dose: 90 mg Ceftriaxone Sodium 1 gm/ (Sodium Chloride) 100 mls @ 100 mls/hr IVPB DAILY [facility] PRN Reason: Protocol Last Admin: 03/24/18 09:16 Dose: 100 mls/hr Azithromycin 500 mg/ Sodium (Chloride) 250 mls @ 250 mls/hr IVPB DAILY [facility] PRN Reason: Protocol Last Admin: 03/24/18 09:15 Dose: 250 mls/hr Levalbuterol HCl (Xopenex) 1.25 mg INH RQ6 [facility] Last Admin: 03/24/18 19:07 Dose: 1.25 mg Methylprednisolone (Solu-Medrol) 40 mg IVP Q8 [facility] Pantoprazole Sodium (Protonix Ec Tab) 40 mg PO DAILY [facility] Last Admin: 03/24/18 09:18 Dose: 40 mg Results - Vital Signs Recent Vital Signs: Last Vital Signs Temp 98.2 F 03/24/18 16:01 Pulse 99 H 03/24/18 16:01 Resp 17 03/24/18 16:01 BP 103/66 03/24/18 18:10 Pulse Ox 96 03/24/18 16:01 - Labs Result Diagrams: 03/24/18 04:20 03/24/18 04:20 Labs: Laboratory Results - last 24 hr 03/24/18 03/24/18 03/24/18 04:20 04:20 04:20 WBC 7.0 RBC 4.21 Hgb 13.2 Hct 40.0 MCV 95.1 MCH 31.5 H MCHC 33.1 RDW 14.1 Plt Count 167 Sodium 139 Potassium 3.9 Chloride 104 Carbon Dioxide 25 Anion Gap 14 BUN 21 H Creatinine 1.1 Est GFR ( Amer) 58 Est GFR (Non-Af Amer) 48 Random Glucose 144 H Calcium 10.0 Procalcitonin 0.05 L
[2018-03-25] MEDS: Levalbuterol 1.25 MG/3 ML Inhal Soln UD INH SCH ×5 (01:00→19:19)
[2018-03-25] MEDS: MethylPREDNISolone 40 mg Vial IVP SCH ×3 (01:34→17:23)
[2018-03-25 06:02] LABS: HEMOGLOBIN 12.6 g/dL (12.0-16.0); MEAN CELL VOLUME 93.6 fl (81.0-99.0); MEAN CORPUSCULAR HEMOGLOBIN 31.6 pg (27.0-31.0); MEAN CORPUSCULAR HGB CONC 33.8 g/dL (33.0-37.0); RBC 3.99 Mil/uL (3.80-5.20); RED CELL DISTRIBUTION WIDTH 13.8 % (11.5-14.5); WHITE BLOOD COUNT 11.7 K/uL (4.8-10.8)
[2018-03-25 07:25] LABS: CALCIUM 9.9 mg/dL (8.4-10.2)
[2018-03-25 08:52] LABS: ABG ALLEN TEST YES; ARTERIAL BLOOD GAS HCO3 24.7 mmol/L (21-28); ARTERIAL BLOOD GAS HEMOGLOBIN 12.9 g/dL (11.7-17.4); ARTERIAL BLOOD GAS O2 CAPACITY 17.5 mL/dL (16-24); ARTERIAL BLOOD GAS O2 CONTENT 16.9 ML/dL (15-23); ARTERIAL BLOOD GAS O2 SAT 96.4 % (95-98); ARTERIAL BLOOD GAS PCO2 41 mm/Hg (35-45); ARTERIAL BLOOD GAS PH 7.39 (7.35-7.45); ARTERIAL BLOOD GAS PO2 64 mm/Hg (80-100); ARTERIAL BLOOD GAS TCO2 26.1 mmol/L (22-28)
[2018-03-25] MEDS: Enoxaparin 100 mg Syringe SC SCH ×2 (09:46→20:56)
[2018-03-25] MEDS: Pantoprazole 40 mg EC Tab PO SCH (09:47)
[2018-03-25] MEDS: Azithromycin 500 MG in Sodium Chloride 0.9% 250 ML IVPB SCH (09:57)
--- NOTE | 2018-03-25 11:20 | CP.PCM.PN ---
Subjective - Date & Time of Evaluation Date of Evaluation: 03/25/18 Time of Evaluation: 10:45 - Subjective Subjective: Pt is afebrile still with cough, SOB and wheezing denies CP pedal edema better denies abd pain Objective - Vital Signs/Intake and Output Vital Signs (last 24 hours): Temp Pulse Resp BP Pulse Ox 98.4 F 97 H 18 97/57 L 96 03/25/18 08:00 03/25/18 08:00 03/25/18 08:00 03/25/18 08:00 03/25/18 08:00 Intake and Output: 03/25/18 03/25/18 06:59 18:59 Intake Total 350 Balance 350 - Medications Medications: Current Medications Acetaminophen (Tylenol 325mg Tab) 650 mg PO Q6 PRN PRN Reason: mild pain 1-3, mod pain 4-7 Last Admin: 03/25/18 09:56 Dose: 650 mg Albuterol/Ipratropium (Duoneb 3 Mg/0.5 Mg (3 Ml) Ud) 3 ml INH RQ2 PRN PRN Reason: Wheezing Last Admin: 03/24/18 17:51 Dose: 3 ml Artificial Tears (Artificial Tears) 2 drop OU Q4 PRN PRN Reason: Dry eyes Last Admin: 03/24/18 16:38 Dose: 2 drop Docusate Sodium (Colace) 100 mg PO BID PRN PRN Reason: Constipation Enoxaparin Sodium (Lovenox) 90 mg SC Q12 [facility] PRN Reason: Protocol Last Admin: 03/25/18 09:46 Dose: 90 mg Ceftriaxone Sodium 1 gm/ (Sodium Chloride) 100 mls @ 100 mls/hr IVPB DAILY [facility] PRN Reason: Protocol Last Admin: 03/25/18 09:47 Dose: 100 mls/hr Azithromycin 500 mg/ Sodium (Chloride) 250 mls @ 250 mls/hr IVPB DAILY [facility] PRN Reason: Protocol Last Admin: 03/25/18 09:57 Dose: 250 mls/hr Levalbuterol HCl (Xopenex) 1.25 mg INH RQ6 [facility] Last Admin: 03/25/18 08:11 Dose: 1.25 mg Methylprednisolone (Solu-Medrol) 40 mg IVP Q8 [facility] Last Admin: 03/25/18 09:52 Dose: 40 mg Montelukast Sodium (Singulair) 10 mg PO DAILY [facility] Last Admin: 03/25/18 09:54 Dose: 10 mg Pantoprazole Sodium (Protonix Ec Tab) 40 mg PO DAILY [facility] Last Admin: 03/25/18 09:47 Dose: 40 mg - Labs Labs: 03/25/18 04:20 03/25/18 04:20 PT 13.6 Seconds (9.8-13.1) H 03/22/18 13:29 INR 1.2 (0.9-1.2) 03/22/18 13:29 APTT 29.6 Seconds (25.6-37.1) 03/22/18 13:29 - Constitutional Appears: Non-toxic, No Acute Distress, Chronically Ill - Head Exam Head Exam: ATRAUMATIC, NORMAL INSPECTION, NORMOCEPHALIC - Eye Exam Eye Exam: EOMI, Normal appearance Pupil Exam: NORMAL ACCOMMODATION - ENT Exam ENT Exam: Mucous Membranes Moist, Normal External Ear Exam - Neck Exam Neck Exam: Full ROM. absent: Meningismus - Respiratory Exam Respiratory Exam: + Rales, Rhonchi, Wheezes - Cardiovascular Exam Cardiovascular Exam: Tachycardia, REGULAR RHYTHM, +S1, +S2 - GI/Abdominal Exam GI & Abdominal Exam: Soft, Normal Bowel Sounds. absent: Tenderness - Extremities Exam Extremities Exam: Full ROM, Normal Capillary Refill, Trace Pedal Edema. absent : Calf Tenderness - Back Exam Back Exam: Full ROM. absent: CVA tenderness (L), CVA tenderness (R) - Neurological Exam Neurological Exam: Alert, Awake, CN II-XII Intact, Oriented x3 Neuro motor strength exam: Left Upper Extremity: 5, Right Upper Extremity: 5, Left Lower Extremity: 5, Right Lower Extremity: 5 - Psychiatric Exam Psychiatric exam: Normal Affect, Normal Mood - Skin Skin Exam: Dry, Normal Color, Warm Assessment and Plan (1) Acute exacerbation of CHF (congestive heart failure) Status: Acute (2) LV (left ventricular) mural thrombus Status: Suspected (3) Reactive airway disease with wheezing Status: Acute (4) CAD (coronary artery disease) Status: Chronic (5) Cardiomyopathy Status: Chronic - Assessment and Plan (Free Text) Assessment: 78 y/o female , who just came from [place] 1 month ago, with hx of CAD, came in because of fever, cough, wheezing and SOB. CT of Chest : no aneurysm/dissection, no PE, Pulm Vasc congestion ECHO : 20-25% EF, Apical and Anterolateral Hypokinesia, LV Thrombus Patient though better , still has SOB, cough, wheezing and rales. 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 Acute Bronchitis r/o Early Pneumonia pt came in with fever, cough , productive started empirically on IV ceftriaxone and Azithro -will cont and monitor CXR : lower lobe opacities vs atelectasis, CT of chest : Atelectasis, PVC (5) CAD (coronary artery disease) Status: Chronic ECHO shows apical and anteroseptal hypokinesia Troponin x 3 negative Cardio consulted cont Lovenox no BB, OVIDIO due to low normal BP LDL : low - no statin (6) Cardiomyopathy Status: Chronic ? ischemic - Lasix IV given - pt would benefit from OVIDIO and BB once BP better 7. Obesity BMI 36.8 8. Aortic aneurysm/Dissection ruled out CTA of Chest /Abdomen with contrast done - no aneurysm 9. Acute Kidney Injury Crea now 1.5 prob sec to Lasix, pt also received IV contrast will rpt BMP in am DVT proph Pt on therapeutic Lovenox
[2018-03-25] MEDS: Albuterol-Ipratrop 3 mg / 0.5 (3 ml) UD INH PRN (16:00)
[2018-03-25] MEDS: Artificial Tears Opht Soln OU PRN (20:57)
--- NOTE | 2018-03-25 22:20 | CP.PCM.CON ---
History of Present Illness - History of Present Illness History of Present Illness: 78 y/o woman with significant cardiac hisotry, admitted with worsening SCHMITT, cough, productive sputum and wheezing. NKDA Never smoker nor use of ETOH. Fam Hx: Non Cont. Neg hs of asthma. PE: VSS O2 sat was 98 % on 2 LPM of O2 Lungs: mild focal wheezing and crackles at bases. Rest of PE was WNL. Labs: see below. a/p Aucte Resp Insuff 2/2 Acute Tracheobronchitis with bronchospasm. CHF Dyspnea is multifactrial with obesity, deconditioning, chf, and tracheobronchitis. Cont supp O2 for o2 Sat > 90% with humidifcation. Cont Iv abx, steroids, nebulized treatments. Slowly taper steroids. Cont Montelukast. Cont to optimize Cardiac status. Obtain sputum for micro studies. F/U with me as outpatient when discharged. PUD and DVT Px. Signing out of case. Please resonsult if condition does not improve, or worsens. Past Patient History - Infectious Disease Hx of Infectious Diseases: None - Tetanus Immunizations Tetanus Immunization: Unknown - Past Medical History & Family History Past Medical History?: Yes - Past Social History Smoking Status: Never Smoked - CARDIAC Hx Cardiac Disorders: Yes Hx Hypertension: Yes - PULMONARY Hx Respiratory Disorders: No - NEUROLOGICAL Hx Neurological Disorder: No - HEENT Hx HEENT Problems: No - RENAL Hx Chronic Kidney Disease: No - ENDOCRINE/METABOLIC Hx Endocrine Disorders: No - HEMATOLOGICAL/ONCOLOGICAL Hx Blood Disorders: No - INTEGUMENTARY Hx Dermatological Problems: No - MUSCULOSKELETAL/RHEUMATOLOGICAL Hx Musculoskeletal Disorders: No Hx Falls: No - GASTROINTESTINAL Hx Gastrointestinal Disorders: No - GENITOURINARY/GYNECOLOGICAL Hx Genitourinary Disorders: No - PSYCHIATRIC Hx Psychophysiologic Disorder: No Hx Substance Use: No - SURGICAL HISTORY Hx Surgeries: Yes Hx Tubal Ligation: Yes - ANESTHESIA Hx Anesthesia: Yes Hx Anesthesia Reactions: No Hx Malignant Hyperthermia: No Meds Allergies/Adverse Reactions: Allergies Allergy/AdvReac Type Severity Reaction Status Date / Time No Known Allergies Allergy Verified 03/22/18 12:09 - Medications Medications: Current Medications Acetaminophen (Tylenol 325mg Tab) 650 mg PO Q6 PRN PRN Reason: mild pain 1-3, mod pain 4-7 Last Admin: 03/25/18 20:58 Dose: 650 mg Artificial Tears (Artificial Tears) 2 drop OU Q4 PRN PRN Reason: Dry eyes Last Admin: 03/25/18 20:57 Dose: 2 drop Docusate Sodium (Colace) 100 mg PO BID PRN PRN Reason: Constipation Enoxaparin Sodium (Lovenox) 90 mg SC Q12 ALHAJI PRN Reason: Protocol Last Admin: 03/25/18 20:56 Dose: 90 mg Ceftriaxone Sodium 1 gm/ (Sodium Chloride) 100 mls @ 100 mls/hr IVPB DAILY ALHAJI PRN Reason: Protocol Azithromycin 500 mg/ Sodium (Chloride) 250 mls @ 250 mls/hr IVPB DAILY ALHAJI PRN Reason: Protocol Levalbuterol HCl (Xopenex) 1.25 mg INH RQ6 [facility] Last Admin: 03/25/18 19:19 Dose: 1.25 mg Methylprednisolone (Solu-Medrol) 40 mg IVP Q8 [facility] Last Admin: 03/25/18 17:23 Dose: 40 mg Montelukast Sodium (Singulair) 10 mg PO DAILY [facility] Last Admin: 03/25/18 09:54 Dose: 10 mg Pantoprazole Sodium (Protonix Ec Tab) 40 mg PO DAILY [facility] Last Admin: 03/25/18 09:47 Dose: 40 mg Results - Vital Signs Recent Vital Signs: Last Vital Signs Temp 98.9 F 03/25/18 19:39 Pulse 99 H 03/25/18 19:39 Resp 20 03/25/18 19:39 BP 143/86 03/25/18 19:39 Pulse Ox 98 03/25/18 19:39 - Labs Result Diagrams: 03/25/18 04:20 03/25/18 04:20 Labs: Laboratory Results - last 24 hr 03/25/18 03/25/18 03/25/18 04:20 04:20 08:45 WBC 11.7 H D RBC 3.99 Hgb 12.6 Hct 37.4 MCV 93.6 MCH 31.6 H MCHC 33.8 RDW 13.8 Plt Count 186 pCO2 41 pO2 64 L HCO3 24.7 ABG pH 7.39 ABG Total CO2 26.1 ABG O2 Saturation 96.4 ABG O2 Content 16.9 ABG Base Excess -0.2 ABG Hemoglobin 12.9 ABG Carboxyhemoglobin 1.8 H POC ABG HHb (Measured) 3.5 ABG Methemoglobin 1.5 ABG O2 Capacity 17.5 Ron Test Yes A-a O2 Difference 141.0 Hgb O2 Saturation 93.2 L FiO2 36.0 Sodium 137 Potassium 4.1 Chloride 102 Carbon Dioxide 25 Anion Gap 14 BUN 33 H Creatinine 1.5 H Est GFR ( Amer) 40 Est GFR (Non-Af Amer) 33 Random Glucose 139 H Calcium 9.9
[2018-03-26] MEDS: MethylPREDNISolone 40 mg Vial IVP SCH ×3 (00:17→17:33)
[2018-03-26] MEDS: Levalbuterol 1.25 MG/3 ML Inhal Soln UD INH SCH ×4 (01:00→19:36)
[2018-03-26 06:42] LABS: BASO % 0.1 % (0.0-2.0); LYMPH # 0.4 K/uL (1.0-4.3); LYMPH % 3.8 % (20.0-40.0); MEAN CELL VOLUME 95.3 fl (81.0-99.0); MEAN CORPUSCULAR HEMOGLOBIN 31.6 pg (27.0-31.0); MEAN CORPUSCULAR HGB CONC 33.2 g/dL (33.0-37.0); MEAN PLATELET VOLUME 9.3 fl (7.2-11.7); MONO # 0.2 K/uL (0.0-0.8); MONO % 1.8 % (0.0-10.0); NEUT # 9.8 K/uL (1.8-7.0); NEUT % 94.3 % (50.0-75.0); NRBC % 0.1 % (0.0-0.0); PLATELET COUNT 214 K/uL (130-400); RBC 4.11 Mil/uL (3.80-5.20); RED CELL DISTRIBUTION WIDTH 14.1 % (11.5-14.5); WHITE BLOOD COUNT 10.4 K/uL (4.8-10.8)
[2018-03-26 07:24] LABS: CALCIUM 10.2 mg/dL (8.4-10.2)
[2018-03-26] MEDS: Enoxaparin 100 mg Syringe SC SCH ×2 (09:09→21:55)
[2018-03-26] MEDS: Pantoprazole 40 mg EC Tab PO SCH (09:13)
[2018-03-26 10:12] LABS: LYMPHOCYTE 3 % (20-50); MONOCYTE 3 % (0-10); NEUTROPHIL 93 % (42-75); PLATELET ESTIMATE NORMAL (NORMAL); REACTIVE LYMPHOCYTES 1 % (0-0); TOTAL CELLS COUNTED 100
[2018-03-26] MEDS: Azithromycin 500 MG in Sodium Chloride 0.9% 250 ML IVPB SCH (11:15)
--- NOTE | 2018-03-26 12:38 | CP.PCM.PN ---
Subjective - Date & Time of Evaluation Date of Evaluation: 03/26/18 Time of Evaluation: 10:00 - Subjective Subjective: patient seen and examined bedside. Obese female lying in bed oin no acute distress . Compalins of SOB and wheezing at rest and especially with minimal effort or talking . Unable to expectorate any sputum today. Complains of chronic GARCIA saturating 98 % on 2 l O2 via NC afebrile BP stable Objective - Vital Signs/Intake and Output Vital Signs (last 24 hours): Temp Pulse Resp BP Pulse Ox 97.7 F 92 H 20 101/62 97 03/26/18 12:00 03/26/18 12:00 03/26/18 12:00 03/26/18 12:00 03/26/18 12:00 Intake and Output: 03/26/18 03/26/18 06:59 18:59 Intake Total 100 Balance 100 - Medications Medications: Current Medications Acetaminophen (Tylenol 325mg Tab) 650 mg PO Q6 PRN PRN Reason: mild pain 1-3, mod pain 4-7 Last Admin: 03/25/18 20:58 Dose: 650 mg Artificial Tears (Artificial Tears) 2 drop OU Q4 PRN PRN Reason: Dry eyes Last Admin: 03/25/18 20:57 Dose: 2 drop Docusate Sodium (Colace) 100 mg PO BID PRN PRN Reason: Constipation Enoxaparin Sodium (Lovenox) 90 mg SC Q12 ALHAJI PRN Reason: Protocol Last Admin: 03/26/18 09:09 Dose: 90 mg Ceftriaxone Sodium 1 gm/ (Sodium Chloride) 100 mls @ 100 mls/hr IVPB DAILY ALHAJI PRN Reason: Protocol Last Admin: 03/26/18 09:22 Dose: 100 mls/hr Azithromycin 500 mg/ Sodium (Chloride) 250 mls @ 250 mls/hr IVPB DAILY ALHAJI PRN Reason: Protocol Last Admin: 03/26/18 11:15 Dose: 250 mls/hr Levalbuterol HCl (Xopenex) 1.25 mg INH RQ6 ALHAJI Last Admin: 03/26/18 08:03 Dose: 1.25 mg Methylprednisolone (Solu-Medrol) 40 mg IVP Q8 ALHAJI Last Admin: 03/26/18 09:16 Dose: 40 mg Montelukast Sodium (Singulair) 10 mg PO DAILY [facility] Last Admin: 03/26/18 09:14 Dose: 10 mg Pantoprazole Sodium (Protonix Ec Tab) 40 mg PO DAILY ALHAJI Last Admin: 03/26/18 09:13 Dose: 40 mg - Labs Labs: 03/26/18 06:47 03/26/18 06:47 PT 13.6 Seconds (9.8-13.1) H 03/22/18 13:29 INR 1.2 (0.9-1.2) 03/22/18 13:29 APTT 29.6 Seconds (25.6-37.1) 03/22/18 13:29 - Constitutional Appears: Non-toxic, No Acute Distress, Other (obese ) - Head Exam Head Exam: ATRAUMATIC, NORMAL INSPECTION, NORMOCEPHALIC - Eye Exam Eye Exam: EOMI, PERRL Pupil Exam: NORMAL ACCOMODATION - ENT Exam ENT Exam: Mucous Membranes Moist, Normal Exam - Neck Exam Neck Exam: Full ROM, Normal Inspection - Respiratory Exam Respiratory Exam: Prolonged Expiratory Phase, Wheezes. absent: Respiratory Distress - Cardiovascular Exam Cardiovascular Exam: REGULAR RHYTHM, RRR, +S1, +S2. absent: JVD - GI/Abdominal Exam GI & Abdominal Exam: Soft, Normal Bowel Sounds. absent: Distended, Guarding, Tenderness, Rebound - Rectal Exam Rectal Exam: Deferred - Extremities Exam Extremities Exam: Full ROM, Normal Capillary Refill, Normal Inspection. absent : Pedal Edema - Back Exam Back Exam: NORMAL INSPECTION - Neurological Exam Neurological Exam: Alert, Awake, CN II-XII Intact, Oriented x3 - Psychiatric Exam Psychiatric exam: Normal Affect, Normal Mood - Skin Skin Exam: Dry, Intact, Normal Color, Warm Assessment and Plan - Assessment and Plan (Free Text) Assessment: 78 y/o female , who just came from [place] 1 month ago, with hx of CAD, came in because of fever, cough, wheezing and SOB. CT of Chest showed no aneurysm/dissection, no PE, Pulm Vasc congestion ECHO : 20-25% EF, Apical and Anterolateral Hypokinesia, LV Thrombus Cardiology and pulmonary consulted . Feeling slightly better , still with dyspnea at rest and wheezing 1.Acute exacerbation of CHF (congestive heart failure) systolic and diastolic dysfunction Acute EF 20-25 % seen on ECHO Lasix IV given , will give prn given pt's low normal BP ( 90s systolic) proBNP elevated to 6000 CT of chest showed Pulmonary vascular congestion Cardiology on consult cardiac diet ( patient was on Diovan/ HCTZ , Aldactone and Isordil at home )Will hold off home meds for now since BP is in the lower side 2.LV (left ventricular) mural thrombus Suspected Cardio consulted- discussed with Dr Ramos - rec starting anticoagulant cont Lovenox then overlap Coumadin discussed with help of a splitter head ( SCAR Marvin) Patient and daughter agreed to anticoagulation, denies hx of GI bleed nor [employer] bleed 3. Reactive airway disease with wheezing/ acute bronchitis Acute cont IV Solumedrol, taper dose Nebulizer treatment RTC Pulmonary consult - Dr Haywood appreciated had greenish secretions and now unable to expectorate CT chest showed no infiltrate Continue Zithromax started Singulair 4. CAD (coronary artery disease) Chronic ECHO showed apical and anteroseptal hypokinesia Troponin x 3 negative Cardio consulted cont Lovenox no BB, OVIDIO due to low normal BP LDL : low - no statin 5. Cardiomyopathy Chronic ? ischemic. will need evaluation for cardiac cath once stable from pulmonary function Lasix IV given patient would benefit from OVIDIO and BB once BP better 6. Obesity BMI 36.8 7. Aortic aneurysm/Dissection ruled out CTA of Chest /Abdomen with contrast done - no aneurysm 8. Acute Kidney Injury prob sec to Lasix, pt also received IV contrast Cr 1.5 now 9. DVT proph Pt on therapeutic Lovenox
[2018-03-26] MEDS ORDERED: Apap-Butalbital-Caffeine 325-50-40mg Tab PO SCH (13:00)
[2018-03-26] MEDS: Apap-Butalbital-Caffeine 325-50-40mg Tab PO PRN (17:45)
[2018-03-27] MEDS: MethylPREDNISolone 40 mg Vial IVP SCH ×2 (00:34→10:38)
[2018-03-27] MEDS: Apap-Butalbital-Caffeine 325-50-40mg Tab PO PRN ×2 (00:38→13:59)
[2018-03-27] MEDS: Levalbuterol 1.25 MG/3 ML Inhal Soln UD INH SCH ×3 (01:03→13:34)
[2018-03-27 06:50] LABS: HEMOGLOBIN 12.9 g/dL (12.0-16.0); MEAN CELL VOLUME 97.1 fl (81.0-99.0); MEAN CORPUSCULAR HEMOGLOBIN 33.1 pg (27.0-31.0); MEAN CORPUSCULAR HGB CONC 34.1 g/dL (33.0-37.0); RBC 3.89 Mil/uL (3.80-5.20); RED CELL DISTRIBUTION WIDTH 13.7 % (11.5-14.5); WHITE BLOOD COUNT 8.3 K/uL (4.8-10.8)
[2018-03-27 06:57] LABS: CALCIUM 10.5 mg/dL (8.4-10.2)
[2018-03-27 08:15] VITALS: RESP 18
[2018-03-27] MEDS: Artificial Tears Opht Soln OU PRN (10:37)
[2018-03-27] MEDS: Enoxaparin 100 mg Syringe SC SCH (10:37)
[2018-03-27] MEDS: Pantoprazole 40 mg EC Tab PO SCH (10:38)
--- NOTE | 2018-03-27 10:56 | CP.PCM.DIS ---
Provider - Provider Date of Admission: 03/22/18 15:54 Attending physician: Nuno Hernandez MD Primary care physician: None Consults: cardiology , pulmonary consult Time Spent in preparation of Discharge (in minutes): 15 Hospital Course - Lab Results Lab Results: Micro Results 03/22/18 12:50 Blood Blood Culture - Preliminary NO GROWTH AFTER 4 DAYS 03/22/18 13:20 Blood Blood Culture - Preliminary NO GROWTH AFTER 4 DAYS 03/22/18 14:20 Urine,Clean Catch Urine Culture - Final 50-100,000 CFU/ML. MULTIPLE SPECIES. SUGGEST REPEAT SPECIMEN. 03/22/18 17:00 Sputum Gram Stain - Final 03/22/18 17:00 Sputum Sputum Culture - Final NORMAL ORAL JERRY Most Recent Lab Values WBC 8.3 K/uL (4.8-10.8) 03/27/18 06:05 RBC 3.89 Mil/uL (3.80-5.20) 03/27/18 06:05 Hgb 12.9 g/dL (12.0-16.0) 03/27/18 06:05 Hct 37.8 % (34.0-47.0) 03/27/18 06:05 MCV 97.1 fl (81.0-99.0) 03/27/18 06:05 MCH 33.1 pg (27.0-31.0) H 03/27/18 06:05 MCHC 34.1 g/dL (33.0-37.0) 03/27/18 06:05 RDW 13.7 % (11.5-14.5) 03/27/18 06:05 Plt Count 197 K/uL (130-400) 03/27/18 06:05 MPV 9.3 fl (7.2-11.7) 03/26/18 06:47 Neut % (Auto) 94.3 % (50.0-75.0) H 03/26/18 06:47 Lymph % (Auto) 3.8 % (20.0-40.0) L 03/26/18 06:47 [place] % (Auto) 1.8 % (0.0-10.0) 03/26/18 06:47 Eos % (Auto) 0.0 % (0.0-4.0) 03/26/18 06:47 Baso % (Auto) 0.1 % (0.0-2.0) 03/26/18 06:47 Neut # (Auto) 9.8 K/uL (1.8-7.0) H 03/26/18 06:47 Lymph # (Auto) 0.4 K/uL (1.0-4.3) L 03/26/18 06:47 [place] # (Auto) 0.2 K/uL (0.0-0.8) 03/26/18 06:47 Eos # (Auto) 0.0 K/uL (0.0-0.7) 03/26/18 06:47 Baso # (Auto) 0.0 K/uL (0.0-0.2) 03/26/18 06:47 Neutrophils % (Manual) 93 % (42-75) H 03/26/18 06:47 Lymphocytes % (Manual) 3 % (20-50) L 03/26/18 06:47 Reactive Lymphs % 1 % (0-0) H 03/26/18 06:47 Monocytes % (Manual) 3 % (0-10) 03/26/18 06:47 Platelet Estimate Normal (NORMAL) 03/26/18 06:47 RBC Morphology Normal (NORMAL) 03/26/18 06:47 ESR 39 mm/hr (0-30) H 03/22/18 13:29 PT 13.6 Seconds (9.8-13.1) H 03/22/18 13:29 INR 1.2 (0.9-1.2) 03/22/18 13:29 APTT 29.6 Seconds (25.6-37.1) 03/22/18 13:29 D-Dimer, Quantitative 788 ng/mlDDU (0-230) H 03/23/18 08:45 pCO2 41 mm/Hg (35-45) 03/25/18 08:45 pO2 64 mm/Hg (80-100) L 03/25/18 08:45 HCO3 24.7 mmol/L (21-28) 03/25/18 08:45 ABG pH 7.39 (7.35-7.45) 03/25/18 08:45 ABG Total CO2 26.1 mmol/L (22-28) 03/25/18 08:45 ABG O2 Saturation 96.4 % (95-98) 03/25/18 08:45 ABG O2 Content 16.9 ML/dL (15-23) 03/25/18 08:45 ABG Base Excess -0.2 mmol/L (-2.0-3.0) 03/25/18 08:45 ABG Hemoglobin 12.9 g/dL (11.7-17.4) 03/25/18 08:45 ABG Carboxyhemoglobin 1.8 % (0.5-1.5) H 03/25/18 08:45 POC ABG HHb (Measured) 3.5 % (0.0-5.0) 03/25/18 08:45 ABG Methemoglobin 1.5 % (0.0-3.0) 03/25/18 08:45 ABG O2 Capacity 17.5 mL/dL (16-24) 03/25/18 08:45 Ron Test Yes 03/25/18 08:45 VBG pH 7.37 (7.32-7.43) 03/22/18 14:42 VBG pCO2 52 mmHg (40-60) 03/22/18 14:42 VBG HCO3 25.5 mmol/L 03/22/18 14:42 VBG Total CO2 31.7 mmol/L (22-28) H 03/22/18 14:42 VBG O2 Sat (Calc) 25.4 % (40-65) L 03/22/18 14:42 VBG Base Excess 3.6 mmol/L (0.0-2.0) H 03/22/18 14:42 VBG Potassium 3.9 mmol/L (3.6-5.2) 03/22/18 14:42 A-a O2 Difference 141.0 mm/Hg 03/25/18 08:45 Hgb O2 Saturation 93.2 % (95.0-98.0) L 03/25/18 08:45 Sodium 134.0 mmol/L (132-148) 03/22/18 14:42 Chloride 99.0 mmol/L (98-107) 03/22/18 14:42 Glucose 102 mg/dL (65-105) 03/22/18 14:42 Lactate 1.3 mmol/L (0.7-2.1) 03/22/18 14:42 FiO2 36.0 % 03/25/18 08:45 Sodium 137 mmol/l (132-148) 03/27/18 06:05 Potassium 3.5 MMOL/L (3.6-5.0) L 03/27/18 06:05 Chloride 102 mmol/L (98-107) 03/27/18 06:05 Carbon Dioxide 25 mmol/L (22-30) 03/27/18 06:05 Anion Gap 14 (10-20) 03/27/18 06:05 BUN 43 mg/dl (7-17) H 03/27/18 06:05 Creatinine 1.6 mg/dl (0.7-1.2) H 03/27/18 06:05 Est GFR ( Amer) 38 03/27/18 06:05 Est GFR (Non-Af Amer) 31 03/27/18 06:05 Random Glucose 156 mg/dL (65-105) H 03/27/18 06:05 Hemoglobin A1c 6.1 % (4.2-6.5) 03/23/18 04:20 Lactic Acid 1.5 MMOL/L (0.7-2.1) 03/22/18 13:29 Calcium 10.5 mg/dL (8.4-10.2) H 03/27/18 06:05 Phosphorus 2.2 mg/dl (2.5-4.5) L 03/22/18 13:29 Magnesium 1.1 MG/DL (1.6-2.3) L 03/22/18 13:29 Total Bilirubin 1.2 mg/dl (0.2-1.3) 03/23/18 04:20 AST 37 U/L (14-36) H 03/23/18 04:20 ALT 26 U/L (9-52) 03/23/18 04:20 Alkaline Phosphatase 51 U/L (38-126) 03/23/18 04:20 Troponin I 0.0530 ng/mL (0.00-0.120) 03/23/18 04:20 C-React Prot High Sens > 15.00 mg/L (1.00-3.00) H 03/22/18 13:29 NT-Pro-B Natriuret Pep 6780 pg/ml (0-900) H 03/26/18 06:47 Total Protein 6.5 G/DL (6.3-8.2) 03/23/18 04:20 Albumin 2.9 g/dL (3.5-5.0) L D 03/23/18 04:20 Globulin 3.5 gm/dL (2.2-3.9) 03/23/18 04:20 Albumin/Globulin Ratio 0.8 (1.0-2.1) L 03/23/18 04:20 Triglycerides 53 mg/DL (0-149) 03/23/18 04:20 Cholesterol 110 mg/dL (0-199) 03/23/18 04:20 LDL Cholesterol Direct 44 mg/dL (0-129) 03/23/18 04:20 HDL Cholesterol 38 MG/DL (30-70) 03/23/18 04:20 Procalcitonin 0.05 NG/ML (0.19-0.49) L 03/24/18 04:20 TSH 3rd Generation 0.59 mIU/ML (0.46-4.68) 03/23/18 04:20 Venous Blood Potassium 3.9 mmol/L (3.6-5.2) 03/22/18 14:42 Urine Color Yellow (YELLOW) 03/22/18 14:20 Urine Clarity Cloudy (Clear) 03/22/18 14:20 Urine pH 6.0 (5.0-8.0) 03/22/18 14:20 Ur Specific [place] 1.013 (1.003-1.030) 03/22/18 14:20 Urine Protein Negative mg/dL (NEGATIVE) 03/22/18 14:20 Urine Glucose (UA) Neg mg/dL (Normal) 03/22/18 14:20 Urine Ketones Negative mg/dL (NEGATIVE) 03/22/18 14:20 Urine Blood Negative (NEGATIVE) 03/22/18 14:20 Urine Nitrate Negative (NEGATIVE) 03/22/18 14:20 Urine Bilirubin Negative (NEGATIVE) 03/22/18 14:20 Urine Urobilinogen 2.0 mg/dL (0.2-1.0) H 03/22/18 14:20 Ur Leukocyte Esterase Neg Radha/uL (Negative) 03/22/18 14:20 Urine RBC (Auto) < 1 /hpf (0-3) 03/22/18 14:20 Urine Microscopic WBC 1 /hpf (0-5) 03/22/18 14:20 Ur Squamous Epith Cells 4 /hpf (0-5) 03/22/18 14:20 Urine Bacteria Rare (<OCC) 03/22/18 14:20 Influenza Typ A,B (EIA) Negative for flu a/b (NEGATIVE) 03/26/18 15:14 - Hospital Course Hospital Course: 78 y/o female , who just came from [place] 1 month ago, with hx of CAD, cardiomyopathy , obese , came in because of fever, cough, wheezing and SOB. ProBNP was elevated She was admitted in telemetry for close monitoring .Pulmonary and cardiology were consulted. she wsa started on Solumedrol IV , Duonebs for tracheobronchitis and empirically on Zithromax and rocephin IV. She was given lasix IV CT of Chest showed no aneurysm/dissection, no PE, Pulm Vasc congestion, no infiltrate ECHO : 20-25% EF, Apical and Anterolateral Hypokinesia, no thrombus ( discussed with Dr. Lee) During hospitalization noted that patient's BP remained on the lower side SBP 110 without any treatment so all her BP meds from home were discontinued and this was explained to the daughter Her kidney function noted to trend up slightly after CT with contrast and lasix was given with Cr 1.6. Will need to continue monitoring renal function on discharge At present feeling better , saturating 98 % in RA while sitting . Still with diffuse rhonchi on exam but no respiratory distress . Will d/c patient with family home on slow jeremy of steroids PO . Singulair and Duonebs PRN No need for BP meds for now , no need for anticoagulation Counselled on low salt diet Patient to follow up with her quebracho tanner r. Will most likely need cardiac cathetherization in the future 1.Acute exacerbation of CHF (congestive heart failure) systolic and diastolic dysfunction EF 20-25 % seen on ECHO proBNP was elevated to [address] of chest showed Pulmonary vascular congestion Cardiology consult appreciated and case discussed with Dr. Lee cardiac diet ( patient was on Diovan/ HCTZ , Aldactone and Isordil at home )Will hold off all home meds for now since BP is in the lower side . will need follow up wuith her quebracho tanner Discussed with Dr. Lee. There is no thrombus on LV . No need for anticoagulation 2. Reactive airway disease with wheezing/ acute tracheobronchitis Acute Received IV Solumedrol in hospital , Rocephin and zithromax Will d/c on slow jeremy of solumedrol , Duonebs, singulair Nebulizer treatment RTC Pulmonary consult with Dr Haywood appreciated CT chest showed no infiltrate Continue Zithromax Po for 1 week 3. CAD (coronary artery disease) Chronic ECHO showed apical and anteroseptal hypokinesia Troponin x 3 negative Cardio consulted no BB, OVIDIO due to low normal BP LDL : low - no statin will need to follow up with her quebracho tanner on discharge for cardiac cath 4. Cardiomyopathy Chronic will need evaluation for cardiac cath once stable from pulmonary function patient would benefit from OVIDIO and BB once BP better 5. Obesity BMI 36.8 6. Aortic aneurysm/Dissection ruled out CTA of Chest /Abdomen with contrast done - no aneurysm 8. Acute Kidney Injury prob sec to Lasix, pt also received IV contrast Cr 1.6 avoid nephrotoxic agents follow up as outpatient 9. DVT proph was on Lovenox Discharge Exam - Head Exam Head Exam: ATRAUMATIC, NORMAL INSPECTION, NORMOCEPHALIC Additional comments: obese - Eye Exam Eye Exam: EOMI, Normal appearance, PERRL Pupil Exam: NORMAL ACCOMODATION - ENT Exam ENT Exam: Mucous Membranes Moist, Normal Exam - Neck Exam Neck exam: Full Rom, Normal Inspection - Respiratory Exam Respiratory Exam: Clear to PA & Lateral, Rhonchi (diffuse ). absent: Wheezes, Respiratory Distress - Cardiovascular Exam Cardiovascular Exam: REGULAR RHYTHM, RRR, +S1, +S2. absent: JVD - GI/Abdominal Exam GI & Abdominal Exam: Normal Bowel Sounds, Soft. absent: Distended, Guarding, Rebound, Tenderness - Rectal Exam Rectal Exam: Deferred - Extremities Exam Extremities exam: normal capillary refill, normal inspection - Back Exam Back exam: NORMAL INSPECTION - Neurological Exam Neurological exam: Alert, CN II-XII Intact, Oriented x3, Reflexes Normal - Psychiatric Exam Psychiatric exam: Normal Affect, Normal Mood - Skin Skin Exam: Dry, Normal Color, Warm Discharge Plan - Discharge Medications Prescriptions: Albuterol/Ipratropium [Duoneb 3 MG/3 Ml-0.5 MG/3 Ml 3 Ml] 3 ml IH Q4 PRN #100 neb PRN Reason: Wheezing Azithromycin [Zithromax] 500 mg PO DAILY #5 tab Docusate [Colace] 100 mg PO BID PRN #60 cap PRN Reason: Constipation Montelukast [Singulair] 10 mg PO DAILY #30 tab Prednisone 5 mg PO DAILY #100 tab.ds.pk - Follow Up Plan Condition: IMPROVED Disposition: HOME/ ROUTINE Patient education suggested?: Yes Instructions: Heart Failure, Adult (DC), Reactive Airways Disease (DC) Referrals: [facility] [place] [Outside] Trung Lee MD [Staff Provider] - Mehran Haywood MD [Staff Provider] -
[2018-03-27] MEDS: Azithromycin 500 MG in Sodium Chloride 0.9% 250 ML IVPB SCH (11:57)
[2018-03-27 12:25] VITALS: BP 135/70; PULSE 89; TEMP 97.8; O2SAT 95
== END 2018-03-27 15:27 | disposition home or self-care (01) | DRG 291 ==
LOC: H.ER 11:52 → H.ERHOLD 15:54 → H.TEL 21:41
PROC: 3E0234Z Introduction of Serum, Toxoid and Vaccine into Muscle, Percutaneous Approach (ICD-10-PCS; principal; 2018-03-23)
DX: I11.0 Hypertensive heart disease with heart failure (principal); J18.9 Pneumonia, unspecified organism; J44.0 Chronic obstructive pulmonary disease with (acute) lower respiratory infection; N17.9 Acute kidney failure, unspecified; J98.11 Atelectasis; I50.41 Acute combined systolic (congestive) and diastolic (congestive) heart failure; I42.8 Other cardiomyopathies; I51.3 Intracardiac thrombosis, not elsewhere classified; J20.9 Acute bronchitis, unspecified; I25.10 Atherosclerotic heart disease of native coronary artery without angina pectoris; I49.3 Ventricular premature depolarization; E78.5 Hyperlipidemia, unspecified; E66.9 Obesity, unspecified; Z68.36 Body mass index [BMI] 36.0-36.9, adult; Z23 Encounter for immunization